=== PATIENT | male | born 1990 | race Caucasian/White ===

== ENCOUNTER 2019-02-08 09:49 | Emergency (ER) | payer OTHER ==
[~2019-02-08] VITALS: Ht 180.3 cm; Wt 68.0 kg
[2019-02-08] MEDS ORDERED: Amoxicillin500 MG PO (11:17)
[2019-02-08] MEDS ORDERED: HYDR1TAB94 PO (11:17)
== END 2019-02-08 11:26 | disposition home or self-care (01) ==
LOC: ER 09:49
DX: S02.40FA Zygomatic fracture, left side, initial encounter for closed fracture (principal); K04.7 Periapical abscess without sinus; W22.8XXA Striking against or struck by other objects, initial encounter; F17.210 Nicotine dependence, cigarettes, uncomplicated
CPT/HCPCS: 70486; 99283-25

== ENCOUNTER 2022-03-04 22:45 | Emergency (ER) | payer OTHER ==
[~2022-03-04] VITALS: Ht 170.2 cm; Wt 72.6 kg
[~2022-03-04 22:45] MED LIST: Amoxicillin500 MG PO; CRUTCH4 XX; HYDR1TAB94 PO; Klonopin0.5 MG PO; METPHE10 PO
[2022-03-05] MEDS ORDERED: CHLO25 PO (00:05)
== END 2022-03-05 00:21 | disposition home or self-care (01) ==
LOC: ER 22:45
DX: T43.621A Poisoning by amphetamines, accidental (unintentional), initial encounter (principal); F10.139 Alcohol abuse with withdrawal, unspecified; F19.10 Other psychoactive substance abuse, uncomplicated; F17.210 Nicotine dependence, cigarettes, uncomplicated; Y92.9 Unspecified place or not applicable
CPT/HCPCS: 93005; 93010; 99284-25; A9270

== ENCOUNTER 2022-03-18 10:40 | Emergency (ER) | payer OTHER ==
[~2022-03-18] VITALS: Ht 180.3 cm; Wt 68.0 kg
[~2022-03-18 10:40] MED LIST changes: +CHLO25 PO
== END 2022-03-18 11:58 | disposition left against medical advice (07) ==
LOC: ER 10:40
DX: M25.532 Pain in left wrist (principal); R60.0 Localized edema; F17.210 Nicotine dependence, cigarettes, uncomplicated
CPT/HCPCS: 99282

== ENCOUNTER 2022-07-29 22:26 | Emergency (ER) | payer OTHER ==
[~2022-07-29] VITALS: Ht 180.3 cm; Wt 72.6 kg
[2022-07-29] MEDS ORDERED: CHLO25 PO (22:42)
[2022-07-29] MEDS ORDERED: ONDA4ODT MM (22:42)
[2022-07-29] MEDS ORDERED: NARCAN4 M1 (23:14)
[2022-07-30] MEDS ORDERED: CHLO25 PO (10:02)
== END 2022-07-29 23:47 ==
LOC: ER 22:26
DX: T50.901A Poisoning by unspecified drugs, medicaments and biological substances, accidental (unintentional), initial encounter (principal); Z71.41 Alcohol abuse counseling and surveillance of alcoholic; F17.210 Nicotine dependence, cigarettes, uncomplicated; Z79.899 Other long term (current) drug therapy
CPT/HCPCS: A9270

== ENCOUNTER 2022-08-03 00:08 | Emergency (ER) | payer OTHER ==
[~2022-08-03] VITALS: Ht 172.7 cm; Wt 68.0 kg
[~2022-08-03 00:08] MED LIST changes: +NARCAN4 M1; +ONDA4ODT MM
[2022-08-03] MEDS ORDERED: CHLO25 PO (01:37)
== END 2022-08-03 01:52 | disposition home or self-care (01) ==
LOC: ER 00:08
DX: F10.232 Alcohol dependence with withdrawal with perceptual disturbance (principal); F17.210 Nicotine dependence, cigarettes, uncomplicated; Z79.899 Other long term (current) drug therapy
CPT/HCPCS: A9270

== ENCOUNTER 2022-08-07 10:29 | Emergency (ER) | payer OTHER ==
[~2022-08-07] VITALS: Ht 172.7 cm; Wt 68.0 kg
[2022-08-07] MEDS ORDERED: NARCAN4 M1 (12:54)
== END 2022-08-07 13:50 | disposition home or self-care (01) ==
LOC: ER 10:29
DX: T40.601A Poisoning by unspecified narcotics, accidental (unintentional), initial encounter (principal); R40.4 Transient alteration of awareness; F17.210 Nicotine dependence, cigarettes, uncomplicated
CPT/HCPCS: 99284

== ENCOUNTER 2022-08-09 20:56 | Emergency (ER) | payer OTHER ==
[~2022-08-09] VITALS: Ht 175.3 cm; Wt 59.0 kg
[2022-08-09] MEDS ORDERED: Naloxone HC1 MG/1 ML IM (23:39)
== END 2022-08-10 00:03 | disposition home or self-care (01) ==
LOC: ER 20:56
DX: T40.411A Poisoning by fentanyl or fentanyl analogs, accidental (unintentional), initial encounter (principal); F17.210 Nicotine dependence, cigarettes, uncomplicated; Z79.899 Other long term (current) drug therapy
CPT/HCPCS: 99284

== ENCOUNTER 2022-12-04 17:51 | Emergency (ER) | payer OTHER ==
[~2022-12-04] VITALS: Ht 180.3 cm; Wt 68.0 kg
[~2022-12-04 17:51] MED LIST changes: +Naloxone HC1 MG/1 ML IM
[2022-12-04 17:59] VITALS: BP 151/105
[2022-12-04] MEDS ORDERED: SULTRIDS PO ×2 (21:31)
== END 2022-12-04 21:36 | disposition home or self-care (01) ==
LOC: ER 17:51
DX: S61.441A Puncture wound with foreign body of right hand, initial encounter (principal); W34.010A Accidental discharge of airgun, initial encounter; Z79.899 Other long term (current) drug therapy; F17.210 Nicotine dependence, cigarettes, uncomplicated
CPT/HCPCS: 73130; A9270